=== PATIENT | female | born 1990 | race Caucasian/White ===

== ENCOUNTER 2019-06-14 23:02 | Emergency (ER) | payer OTHER ==
[~2019-06-14] VITALS: Ht 149.9 cm; Wt 70.0 kg
[2019-06-14 23:07] VITALS: Ht 149.9 cm; Wt 70.0 kg
[2019-06-14 23:56] LABS: BASOPHIL % 0.5 % (0-2); PLATELET COUNT 294 x10^3mcL (130-400); RED CELL DISTRIBUTION WIDTH 13.6 % (11.5-14.5)
[2019-06-15 00:07] LABS: CALCIUM 8.6 mg/dL (8.5-10.1); CHLORIDE SERUM 103 mmol/L (98-107); CREATININE SERUM 0.7 mg/dL (0.6-1.0); GFR1 > 60 mL/min; GLUCOSE SERUM 113 mg/dL (74-106); POTASSIUM SERUM 3.8 mmol/L (3.5-5.1); SODIUM SERUM 140 mmol/L (136-145)
[2019-06-15 00:25] LABS: T3 TOTAL 1.5 ng/mL
[2019-06-15 00:29] LABS: ALBUMIN 3.9 g/dL (3.4-5.0); ALKALINE PHOSPHATASE 113 U/L (46-116); AST/SGOT 25 U/L (15-37); BILIRUBIN TOTAL 0.2 mg/dL (0.20-1.00); TOTAL PROTEIN, SERUM 7.8 g/dL (6.4-8.2)
[2019-06-15 00:46] LABS: ALT/SGPT 33 U/L (14-59)
[2019-06-15 01:07] LABS: FREE T4 1.12 ng/dL (0.76-1.46); FREE THYROXINE INDEX 2.6 ug/dL (1.4-4.5); T4(THYROXINE) 8.4 ug/dL (4.7-13.3)
[2019-06-15 01:11] VITALS: BP 116/74
== END 2019-06-15 01:11 | disposition home or self-care (01) ==
LOC: ED 23:02
PROVIDERS: Emergency Medicine
DX: R00.2 Palpitations (principal); R42 Dizziness and giddiness; R11.0 Nausea
CPT/HCPCS: 36415; 84439; Q0092

== ENCOUNTER 2019-09-01 21:32 | Emergency (ER) | payer OTHER ==
[~2019-09-01] VITALS: Ht 147.3 cm; Wt 70.5 kg
[2019-09-02 00:13] VITALS: BP 133/95
== END 2019-09-02 00:13 | disposition home or self-care (01) ==
LOC: ED 21:32
DX: J02.9 Acute pharyngitis, unspecified (principal)